=== PATIENT | female | born 1985 ===

== ENCOUNTER 2017-06-25 14:30 | Inpatient (IN) | payer OTHER ==
[~2017-06-25] VITALS: Ht 170.2 cm; Wt 102.1 kg
[2017-07-21] MEDS ORDERED: PRENATAL 19 TA1 EACH PO (04:54)
== END 2017-07-23 16:55 | DRG 775 ==
LOC: OB/GYN 07-17 07:00 → LDR 07-21 04:00 → OB/GYN 07-21 04:00
PROC: 10E0XZZ Delivery of Products of Conception, External Approach (ICD-10-PCS; principal; 2017-07-21)
PROC: 0KQM0ZZ Repair Perineum Muscle, Open Approach (ICD-10-PCS; 2017-07-21)
PROC: 10907ZC Drainage of Amniotic Fluid, Therapeutic from Products of Conception, Via Natural or Artificial Opening (ICD-10-PCS; 2017-07-21)
PROC: 4A033R1 Measurement of Arterial Saturation, Peripheral, Percutaneous Approach (ICD-10-PCS; 2017-07-21)
DX: O70.1 Second degree perineal laceration during delivery (principal); Z37.0 Single live birth; Z3A.40 40 weeks gestation of pregnancy

== ENCOUNTER 2017-07-19 10:16 | Outpatient (CLI) | payer OTHER | END 2017-07-19 11:09 | disposition home or self-care (01) | LOC: NST 10:16 | DX: Z34.83 Encounter for supervision of other normal pregnancy, third trimester (principal) ==

== ENCOUNTER 2021-04-18 14:58 | Outpatient (CLI) | payer OTHER ==
[~2021-04-18 14:58] MED LIST: PRENATAL 19 TA1 EACH PO
== END 2021-04-18 15:09 | disposition home or self-care (01) ==
LOC: NST 14:58
PROVIDERS: ATTEND Obstetrics & Gynecology
DX: Z34.83 Encounter for supervision of other normal pregnancy, third trimester (principal)

== ENCOUNTER 2021-05-13 13:15 | Inpatient (IN) | payer OTHER ==
[~2021-05-13] VITALS: Ht 170.2 cm; Wt 106.1 kg
[2021-05-28] MEDS ORDERED: IRON325 MG (06:59)
== END 2021-05-30 18:24 | disposition home or self-care (01) | DRG 807 ==
LOC: OB/GYN 05-25 13:15 → LDR 05-28 06:04 → OB/GYN 05-28 06:04
PROVIDERS: ADMIT Obstetrics & Gynecology Maternal & Fetal Medicine; ATTEND Obstetrics & Gynecology Maternal & Fetal Medicine
PROC: 10E0XZZ Delivery of Products of Conception, External Approach (ICD-10-PCS; principal; 2021-05-28)
PROC: 0UQGXZZ Repair Vagina, External Approach (ICD-10-PCS; 2021-05-28)
PROC: 10907ZC Drainage of Amniotic Fluid, Therapeutic from Products of Conception, Via Natural or Artificial Opening (ICD-10-PCS; 2021-05-28)
PROC: 10E0XZZ Delivery of Products of Conception, External Approach (ICD-10-PCS; 2021-05-28)
PROC: 3E033VJ Introduction of Other Hormone into Peripheral Vein, Percutaneous Approach (ICD-10-PCS; 2021-05-28)
PROC: 4A1HXFZ Monitoring of Products of Conception, Cardiac Rhythm, External Approach (ICD-10-PCS; 2021-05-28)
DX: O71.4 Obstetric high vaginal laceration alone (principal); Z37.0 Single live birth; Z3A.40 40 weeks gestation of pregnancy

== ENCOUNTER 2021-05-20 10:31 | Outpatient (CLI) | payer OTHER | END 2021-05-20 11:29 | disposition home or self-care (01) | LOC: NST 10:31 | PROVIDERS: ATTEND Obstetrics & Gynecology Maternal & Fetal Medicine | DX: Z34.83 Encounter for supervision of other normal pregnancy, third trimester (principal) ==

== ENCOUNTER 2021-05-23 10:51 | Outpatient (CLI) | payer OTHER | END 2021-05-23 11:40 | disposition home or self-care (01) | LOC: NST 10:51 | PROVIDERS: ATTEND Obstetrics & Gynecology | DX: Z34.83 Encounter for supervision of other normal pregnancy, third trimester (principal) ==

== ENCOUNTER 2022-12-29 12:23 | Inpatient (IN) | payer OTHER ==
[~2022-12-29] VITALS: Ht 170.2 cm; Wt 103.4 kg
[~2022-12-29 12:23] MED LIST changes: +IRON325 MG
== END 2023-01-08 14:56 | disposition home or self-care (01) | DRG 807 ==
LOC: LDR 01-06 05:53 → OB/GYN 01-06 12:21
PROVIDERS: Obstetrics & Gynecology; Obstetrics & Gynecology Gynecology; ADMIT Obstetrics & Gynecology; ATTEND Obstetrics & Gynecology
PROC: 10E0XZZ Delivery of Products of Conception, External Approach (ICD-10-PCS; principal; 2023-01-06)
PROC: 0KQM0ZZ Repair Perineum Muscle, Open Approach (ICD-10-PCS; 2023-01-06)
PROC: 4A1HXCZ Monitoring of Products of Conception, Cardiac Rate, External Approach (ICD-10-PCS; 2023-01-06)
DX: O70.1 Second degree perineal laceration during delivery (principal); Z37.0 Single live birth; Z3A.39 39 weeks gestation of pregnancy; Z20.822 Contact with and (suspected) exposure to COVID-19